=== PATIENT | female | born 1965 | race African-American/Black ===

== ENCOUNTER 2025-06-25 15:46 | Inpatient (IN) | payer OTHER ==
[2025-06-25 15:57] VITALS: BMI 27.8
[2025-06-25 17:11] LABS: ABSOLUTE IMMATURE GRANULOCYTES 0.02 x10^3/uL (0.0-0.031); BASOPHILS # 0.02 x10^3/uL (0.01-0.08); EOSINOPHIL % 1.2 % (0.7-5.8); EOSINOPHILS # 0.06 x10^3/uL (0.04-0.36); MCHC 31.2 g/dl (32.2-35.5); MEAN CELL VOLUME 87.6 fl (79.4-94.8); MEAN PLT VOLUME 9.3 fl (9.4-12.3); MONOCYTE # 0.33 x10^3/uL (0.24-0.86); MONOCYTE % 6.7 % (4.7-12.5); RDW 12.7 % (12.4-16.4)
[2025-06-25 17:37] LABS: GLUCOSE,RANDOM 86.0 mg/dL (74-106)
[2025-06-25 17:38] LABS: TOT PROT 6.9 g/dl (6.4-8.2)
[2025-06-25 17:39] LABS: CO2 25.0 mmol/L (21-32)
[2025-06-25 17:40] LABS: ALK PHOS 101.0 U/L (40-150)
[2025-06-25 17:43] LABS: CREATININE 0.96 mg/dL (0.55-1.3); SGOT/AST 22.0 U/L (5-34); SGPT/ALT 9.0 U/L (0-55)
[2025-06-25 17:46] LABS: ERYTHROCYTE SEDIMENTATION RATE 15 mm/hr (0-30)
[2025-06-25 18:04] LABS: HCV DIAGNOSTIC IN-HOUSE W/RFLX NON-REACTIVE (NONREACTIVE); HIV INTERPRETATION NEGATIVE (NEGATIVE)
[2025-06-25] MEDS ORDERED: VANCOMYCIN 1 GM PREMIX (F) 1 GM/200 ML BAG ONE (20:18)
[2025-06-25] MEDS: AMPICILLIN NA/SULBACTAM NA 3 GM in SODIUM CHLORIDE 100 ML IVPB ONE (20:18)
[2025-06-25] MEDS: VANCOMYCIN 1,000 MG in DEXTROSE 5%-WATER - 250 ML IVPB ONE (20:35)
[2025-06-25] MEDS: SODIUM CHLORIDE 0.9% 500 ML INFUS.BAG IV ONE (20:35)
[2025-06-25] MEDS ORDERED: MIDAZOLAM HCL 2 MG/2 ML SINGLE DOSE VIAL ONE (21:09)
[2025-06-25] MEDS: MIDAZOLAM HCL 2 MG/2 ML SINGLE DOSE VIAL IVPUSH ONE (21:25)
[2025-06-26] MEDS ORDERED: ACETAMINOPHEN 325 MG TABLET (FP) PO PRN (02:39)
[2025-06-26] MEDS: KETOROLAC TROMETHAMINE 30 MG/1 ML VIAL IVPUSH PRN (03:22)
[2025-06-26] MEDS ORDERED: VANCOMYCIN/WATER FOR INJ (PEG) 1,000 MG/200 ML BAG IVPB SCH (08:30)
[2025-06-26 08:44] LABS: ABSOLUTE IMMATURE GRANULOCYTES 0.01 x10^3/uL (0.0-0.031); BASOPHILS # 0.03 x10^3/uL (0.01-0.08); EOSINOPHIL % 1.5 % (0.7-5.8); EOSINOPHILS # 0.06 x10^3/uL (0.04-0.36); MCHC 31.5 g/dl (32.2-35.5); MEAN CELL VOLUME 87.4 fl (79.4-94.8); MEAN PLT VOLUME 9.4 fl (9.4-12.3); MONOCYTE # 0.31 x10^3/uL (0.24-0.86); MONOCYTE % 7.6 % (4.7-12.5); RDW 12.6 % (12.4-16.4)
[2025-06-26 09:18] LABS: GLUCOSE,RANDOM 115.0 mg/dL (74-106); TOT PROT 6.5 g/dl (6.4-8.2)
[2025-06-26 09:19] LABS: CO2 24.0 mmol/L (21-32)
[2025-06-26 09:21] LABS: ALK PHOS 82.0 U/L (40-150)
[2025-06-26] MEDS: ENOXAPARIN NA (PORCINE) 40 MG/0.4 ML DISP.SYRIN SQ SCH (09:22)
[2025-06-26 09:23] LABS: SGOT/AST 18.0 U/L (5-34); SGPT/ALT 10.0 U/L (0-55)
[2025-06-26 09:24] LABS: CREATININE 0.74 mg/dL (0.55-1.3)
[2025-06-26] MEDS ORDERED: VANCOMYCIN 1 GRAM (PRE-DOCKED) 1,000 MG/250 ML BAG IVPB SCH (18:00)
[2025-06-26] MEDS: VANCOMYCIN/WATER FOR INJ (PEG) 1,000 MG/250 ML BAG IVPB SCH (18:03)
[2025-06-27] MEDS ORDERED: VANCOMYCIN/WATER FOR INJ (PEG) 1,000 MG/200 ML BAG IVPB SCH (05:23)
[2025-06-27] MEDS: VANCOMYCIN/WATER FOR INJ (PEG) 1,000 MG/200 ML BAG IVPB SCH (07:05)
[2025-06-27] MEDS: NICOTINE 21 MG/24 HOURS TOPICAL PATCH TD SCH (09:20)
[2025-06-27 10:21] LABS: ABSOLUTE IMMATURE GRANULOCYTES 0.01 x10^3/uL (0.0-0.031); BASOPHILS # 0.02 x10^3/uL (0.01-0.08); EOSINOPHIL % 1.4 % (0.7-5.8); EOSINOPHILS # 0.05 x10^3/uL (0.04-0.36); MCHC 31.4 g/dl (32.2-35.5); MEAN CELL VOLUME 87.3 fl (79.4-94.8); MEAN PLT VOLUME 9.9 fl (9.4-12.3); MONOCYTE # 0.27 x10^3/uL (0.24-0.86); MONOCYTE % 7.4 % (4.7-12.5); RDW 12.4 % (12.4-16.4)
[2025-06-27 12:14] LABS: GLUCOSE,RANDOM 135.0 mg/dL (74-106)
[2025-06-27 12:15] LABS: TOT PROT 6.3 g/dl (6.4-8.2)
[2025-06-27 12:16] LABS: CO2 23.0 mmol/L (21-32)
[2025-06-27 12:17] LABS: ALK PHOS 76.0 U/L (40-150)
[2025-06-27 12:20] LABS: SGOT/AST 17.0 U/L (5-34); SGPT/ALT 9.0 U/L (0-55)
[2025-06-27 12:21] LABS: CREATININE 0.71 mg/dL (0.55-1.3)
[2025-06-28 07:14] LABS: ABSOLUTE IMMATURE GRANULOCYTES 0.01 x10^3/uL (0.0-0.031)
[2025-06-28 07:25] LABS: BASOPHILS # 0.02 x10^3/uL (0.01-0.08); EOSINOPHIL % 1.4 % (0.7-5.8); EOSINOPHILS # 0.05 x10^3/uL (0.04-0.36); MCHC 31.3 g/dl (32.2-35.5); MEAN CELL VOLUME 85.7 fl (79.4-94.8); MEAN PLT VOLUME 9.9 fl (9.4-12.3); MONOCYTE # 0.32 x10^3/uL (0.24-0.86); MONOCYTE % 8.7 % (4.7-12.5); RDW 12.4 % (12.4-16.4)
[2025-06-28 07:37] LABS: GLUCOSE,RANDOM 98.0 mg/dL (74-106); TOT PROT 6.4 g/dl (6.4-8.2)
[2025-06-28 07:38] LABS: CO2 24.0 mmol/L (21-32)
[2025-06-28 07:40] LABS: ALK PHOS 83.0 U/L (40-150)
[2025-06-28 07:43] LABS: CREATININE 0.68 mg/dL (0.55-1.3); SGOT/AST 17.0 U/L (5-34); SGPT/ALT 8.0 U/L (0-55)
[2025-06-28] MEDS: CEFTRIAXONE 2 GM in DEXTROSE 5%-WATER 100 ML IVPB SCH (10:10)
[2025-06-28] MEDS ORDERED: diphenhydrAMINE HCL 25 MG CAPSULE (FP) PO ONE (10:15)
[2025-06-28] MEDS: diphenhydrAMINE HCL 25 MG CAPSULE (FP) PO SCH (10:31)
[2025-06-28] MEDS: MAGNESIUM OXIDE 400 MG TABLET (FP) PO ONE (11:18)
[2025-06-29 06:50] VITALS: TEMP 98.4
[2025-06-29 10:18] VITALS: BP 145/73; PULSE 86; RESP 20
== END 2025-06-29 10:32 | disposition home health service (06) | DRG 344 ==
LOC: JER 15:46 → JERBED 23:30 → J8W 06-26 02:13
PROVIDERS: ADMIT Hospitalist; ATTEND Nurse Practitioner Family
PROC: 02HV33Z Insertion of Infusion Device into Superior Vena Cava, Percutaneous Approach (ICD-10-PCS; principal; 2025-06-28)
PROC: B548ZZA Ultrasonography of Superior Vena Cava, Guidance (ICD-10-PCS; 2025-06-28)
DX: M86.8X4 Other osteomyelitis, hand (principal); L03.011 Cellulitis of right finger; F17.200 Nicotine dependence, unspecified, uncomplicated
CPT/HCPCS: 36415; 36569; 73130-TC-RT-FY; 73218-TC-RT; 80053; 83735; 84100; 85025; 85651; 86140; 86803; 87389; 99285-25